=== PATIENT | male | born 1985 | race Caucasian/White ===

== ENCOUNTER 2016-06-26 07:51 | Inpatient (IN) | payer BC, OTHER ==
[2016-06-26] VITALS: BP 135/92
[~2016-06-26] VITALS: Ht 175.3 cm; Wt 117.9 kg
[2016-06-26 13:04] LABS: *AMPHETAMINE, URINE POSITIVE (NEGATIVE); *BARBITURATE, URINE NEGATIVE (NEGATIVE); *CANNABINOID, URINE POSITIVE (NEGATIVE); *COCCAINE, URINE NEGATIVE (NEGATIVE); *OPIATE, URINE POSITIVE (NEGATIVE); *PHENCYCLIDINE SCREEN,URINE NEGATIVE (NEGATIVE)
--- NOTE | 2016-06-26 13:05 | NUR ---
ADMISSION Pt 31 y/o male from home admitted for heroin/ methamphetamine/ marijuana/ etoh dependence. Pt appears disheveled. Pt alert and oriented to name, place, and time. Perrla. Skin warm and dry to touch. Respirations even and unlabored. Bilateral arms with abcesses noted. Bilateral feet with open wounds noted. VS wnl. YD=638/80 P=101 R=18 T=98.1 PAIN=0/10. Allergy = bactrim. Initial cows=4 ciwa=1. Pt stated he has no PCP. Pt denies any sz history. Pt denies any medical history, only depression and anxiety. Pt was seen by Dr. Sanders and started on a 4 day subutex taper starting 06/27/16. Pt oriented to unit and room. Bed on lowest position with side rails x2 up for safety. Call light within reach. No distress noted at this time. substance hx: - heroin IV 1gm daily x3 months, last used 06/26/16 0.5gm - methamphetamine IV <1gm daily x1 week, last used 06/26/16 <1gm - marijuana smoke 1 g total 3-4times a per week , last used on 06/23/16 0.5gm - etoh beer 3-4 beers daily x3 times per week, last drink 06/24/16 2 beers tx hx: 310 ( outpatient) 09/2015-11/2015 pt states he went to multiple outpatient treatments , but does not remember all of them.
[2016-06-26] MEDS ORDERED: HYDROXYZINE PAMOATE 25 MG CAPSULE PO PRN (13:30)
[2016-06-26] MEDS ORDERED: METHOCARBAMOL 750 MG TABLET PO PRN (13:30)
[2016-06-26] MEDS ORDERED: DICYCLOMINE HCL 20 MG TABLET PO PRN (13:30)
[2016-06-26] MEDS ORDERED: MAGNESIUM HYDROXIDE 30 ML LIQUID UDC PO PRN (13:30)
[2016-06-26] MEDS ORDERED: MIRALAX 17 GM POWD.PACK PO PRN (13:30)
[2016-06-26] MEDS ORDERED: ACETAMINOPHEN 325 MG TABLET PO PRN (13:30)
[2016-06-26] MEDS ORDERED: LOPERAMIDE HCL 2 MG CAPSULE PO PRN ×2 (13:30)
[2016-06-26] MEDS ORDERED: diphenhydrAMINE 50 MG CAPSULE PO PRN (13:30)
[2016-06-26] MEDS ORDERED: MAG HYDROX/AL HYDROX/SIMETH 30 ML LIQUID UDC PO PRN (13:30)
[2016-06-26] MEDS ORDERED: BUPRENORPHINE HCL 2 MG TAB.SUBL SL PRN (13:30)
[2016-06-26] MEDS ORDERED: ONDANSETRON ODT 4 MG TAB.RAPDIS SL PRN (13:30)
[2016-06-26] MEDS ORDERED: CLONIDINE HCL 0.1 MG TABLET PO PRN (13:30)
[2016-06-26] MEDS ORDERED: IBUPROFEN 600 MG TABLET PO PRN (13:30)
[2016-06-26] MEDS ORDERED: DOXYCYCLINE HYCLATE 100 MG TABLET PO SCH (13:45)
[2016-06-26 16:00] VITALS: BP 118/56
--- NOTE | 2016-06-26 18:37 | NUR ---
END OF SHIFT Pt 31 y/o male admitted for heroin, methamph,etoh, and marijuana dependence. Pt alert and oriented to name, place, and time. Perrla. Skin warm and dry to touch. Respirations even and unlabored. Bilateral hand tremors noted. Pt was seen by Dr. Sanders and infectious disease doctor. Pt observed mostly in room throughtout the day. Pt is to begin 4 day subutex starting on 06/27/16. Pt medication compliant and tolerated well. No ASE noted. Bed on lowest position with side rails x2 up for safety. Call light within reach. No distress noted at this time.
[2016-06-26] MEDS: CLINDAMYCIN HCL 300 MG CAPSULE PO SCH (19:25)
--- NOTE | 2016-06-26 19:30 | NUR ---
START OF SHIFT NOTE : Pt 31 y/o male admitted for heroin, methamph,etoh, and marijuana dependence. Pt alert and oriented to name, place, and time. Perrla. Skin warm and dry to touch. Respirations even and unlabored. Bilateral hand tremors noted. Pt was seen by Dr. Sanders and infectious disease doctor. Pt. placed on Cleocin treatment. Pt observed mostly in room throughout the day. Pt is to begin 4 day Subutex starting on 06/27/16. Pt medication compliant and tolerated well. Safety measures in place : bed on lowest position with side rails x2 up for safety, call light within reach. Will continue to monitor closely and offer help.
[2016-06-26] MEDS ORDERED: LACTOBACILLUS RHAMNOSUS GG 1 EACH CAPSULE PO SCH (21:00)
[2016-06-26] MEDS: GABAPENTIN 300 MG CAPSULE PO SCH (21:28)
[2016-06-26] MEDS: ACIDOPHILUS/BULGARICUS CHEW TAB PO SCH (21:28)
[2016-06-26 22:47] VITALS: BP 131/84
[2016-06-26 23:49] LABS: ALANINE AMINOTRANSFERASE 37 U/L (16-63); ALBUMIN 3.2 g/dL (3.4-5.0); ALKALINE PHOSPHATASE 74 U/L (50-136); ASPARTATE AMINOTRANSFERASE 25 U/L (15-37); BILIRUBIN,TOTAL 0.5 mg/dL (0.2-1.0); CALCIUM 8.8 mg/dL (8.5-10.1); CARBON DIOXIDE 27 mmol/L (21-32); CHLORIDE 98 mmol/L (98-107); CREATININE 0.8 mg/dL (0.6-1.3); GFR 111 mL/min (>60); GLUCOSE 102 mg/dL (74-106); POTASSIUM 3.4 mmol/L (3.5-5.1); SODIUM SERUM 136 mmol/L (136-145); TOTAL PROTEIN, SERUM 7.8 g/dL (6.4-8.2); UREA NITROGEN, BLOOD 9 mg/dL (7-18)
[2016-06-26 23:55] LABS: BASOPHILS # (AUTO) 0.1 K/uL (0.0-0.2); BASOPHILS % (AUTO) 1.6 % (0.0-2.0); EOSINOPHILS # (AUTO) 0.4 K/uL (0.0-0.7); EOSINOPHILS % (AUTO) 5.7 % (0.0-7.0); HEMATOCRIT 42.1 % (40.0-50.0); HEMOGLOBIN 14.4 g/dL (14.0-18.0); LYMPHOCYTES # (AUTO) 2.2 K/uL (0.8-4.8); LYMPHOCYTES % (AUTO) 29.3 % (20.5-51.5); MEAN CORPUSCULAR HGB CONC 34 g/dL (32.0-37.0); MEAN CORPUSCULAR VOLUME 84.7 fL (82.0-92.0); MONOCYTES # (AUTO) 0.6 K/uL (0.1-1.30); MONOCYTES % (AUTO) 8.6 % (0.0-11.0); NEUTROPHILS # (AUTO) 4.1 K/uL (1.8-8.9); NEUTROPHILS % (AUTO) 54.8 % (38.5-71.5); PLATELET COUNT (AUTO) 351 K/uL (150-450); RED BLOOD CELL COUNT(AUTO) 4.98 MIL/uL (4.70-6.10); RED CELL DISTRIBUTION WIDTH 12.9 % (11.5-14.5); WHITE BLOOD COUNT (AUTO) 7.4 K/uL (4.0-11.2)
[2016-06-27] VITALS: BP 135/92
[2016-06-27] LABS: THYROID STIMULATING HORMONE 0.543 mIU/mL (0.358-3.740)
[2016-06-27] MEDS ORDERED: POTASSIUM CHLORIDE 20 MEQ TAB.PRT.SR PO ONE (00:15)
[2016-06-27] MEDS: CLINDAMYCIN HCL 300 MG CAPSULE PO SCH ×5 (00:17→23:25)
[2016-06-27] MEDS ORDERED: POTASSIUM CHLORIDE 20 MEQ TAB.PRT.SR ONE (00:20)
[2016-06-27 00:21] LABS: ETHANOL < 3 MG/DL (0-0)
[2016-06-27 00:40] LABS: HIV-1 p24 ANTIGEN NON REACTIVE (NONREACTIVE); HIV-1/2 ANTIBODY NON REACTIVE (NONREACTIVE)
[2016-06-27] MEDS: ACIDOPHILUS/BULGARICUS CHEW TAB PO SCH ×3 (06:27→21:33)
--- NOTE | 2016-06-27 07:00 | NUR ---
END OF SHIFT NOTE : Pt 31 y/o male admitted for heroin, methamph,etoh, and marijuana dependence. Pt alert and oriented to name, place, and time. Perrla. Skin warm and dry to touch. .Pt was seen by Dr. Sanders and infectious disease doctor. Pt. placed on Cleocin treatment. Pt observed mostly in room throughout the day. Pt is to begin 4 day Subutex on 06/27/16. Pt remains compliant with the treatment plan. Pt denies nausea, vomiting and diarrhea. No PRNs were given during my shift. V/S remain WNL. RR=16, even and unlabored, lungs clear upon auscultation, abdomen soft and non- distended. Pt denies nausea, vomiting and diarrhea. LAST CIWA= 1 ,COWS=2 at 0400 , INTAKE= 1035 ml, voided x 3, slept 6 hours. Safety measures in place : bed on lowest position with side rails x2 up for safety, call light within reach. Will continue to monitor closely and offer help.
--- NOTE | 2016-06-27 07:50 | NUR ---
START OF SHIFT NOTE Received report from night nurse, 31 year old male admitted for heroin, methamphetamine,ETOH, and marijuana dependence. Full code/regular diet. Pt reported PMH of depression, anxiety. Pt placed on 3 days Subutex taper starting today. Pt did not receive any PRN's per night nurse, Slept for 6 hours, Last CIWA-1, COWS-2. Upon assessment Pt is alert and oriented to name, place, and time. Skin warm and dry to touch. Respirations even and unlabored. Bilateral hand tremors noted. Educate the pt plan of the day and medication regimen with good verbal understanding. Safety measures in place, call light within reach. Will continue to monitor.
[2016-06-27 08:00] VITALS: BP 139/75
[2016-06-27] MEDS: BUPRENORPHINE HCL 2 MG TAB.SUBL SL SCH ×3 (08:54→21:33)
[2016-06-27] MEDS: MULTIVITAMINS,THERAPEUTIC TABLET PO SCH (08:54)
[2016-06-27] MEDS: DOCUSATE SODIUM 250 MG CAPSULE PO SCH (08:54)
[2016-06-27] MEDS: GABAPENTIN 300 MG CAPSULE PO SCH ×3 (08:54→21:33)
[2016-06-27] MEDS ORDERED: TUBERCULIN,PURIF.PROT.DERIV. 5 TU/0.1 ML TEST ID ONE (09:00)
[2016-06-27] MEDS ORDERED: 4 DAY TAPER BUPRENORPHINE -SERENITY PROTOCOL SL PRN (09:00)
[2016-06-27] MEDS: NEOMY/BACITRAC/POLYMI OINT 28.35 GM TUBE TOP SCH ×2 (09:03→17:01)
[2016-06-27 12:00] VITALS: BP 116/74
[2016-06-27 16:00] VITALS: BP 128/80
--- NOTE | 2016-06-27 19:19 | NUR ---
END OF SHIFT NOTE Gave report to night nurse, 31 year old male admitted for heroin, methamphetamine,ETOH, and marijuana dependence. Full code/regular diet. Pt reported PMH of depression, anxiety. Pt placed on 3 days Subutex taper started today at 0900 COWS-was 13. Pt did not receive any PRN's during shift, No PRN's given during shift. Skin intact warm and dry to touch. Vital signs stable. Pt's total [id number] with voided x3, with x1 BM. No s/s of distress noted. Safety measures in place, call light within reach. Pt endorsed to night nurse in stable condition.
[2016-06-27 20:00] VITALS: BP 140/77
--- NOTE | 2016-06-27 20:00 | NUR ---
Start of Shift Patient is a 31-year old, male, admitted for heroin, methamphetamine,ETOH, and marijuana dependence. Pt is Full code, on regular diet and is allergic to Sulfamethoxazole and Trimethoprim. Pt reported PMHx of depression and anxiety. Pt placed on 4-day Subutex taper, started 06/27/2016. Pt is AAOx3, no SOB nor significant anxiety at this time. Pt is ambulatory with steady gait. No hallucinations, SI nor HI reported. Skin is intact. With medications for abscess. Fall, universal, seizure and safety prec in place. Call light within reach. Kept pt warm, dry and comfortable. Last CIWA=3, COWS=3. Will continue to monitor.
[2016-06-28] VITALS: BP 134/81
[2016-06-28] MEDS: ACIDOPHILUS/BULGARICUS CHEW TAB PO SCH ×3 (06:37→21:37)
[2016-06-28] MEDS: CLINDAMYCIN HCL 300 MG CAPSULE PO SCH ×3 (06:37→17:02)
--- NOTE | 2016-06-28 07:32 | NUR ---
End of Shift Patient is a 31-year old, male, admitted for heroin, methamphetamine,ETOH, and marijuana dependence. Pt is Full code, on regular diet and is allergic to Sulfamethoxazole and Trimethoprim. Pt reported PMHx of depression and anxiety. Pt placed on 4-day Subutex taper, started 06/27/2016. Pt is AAOx3, no SOB nor significant anxiety at this time. Pt is ambulatory with steady gait. No hallucinations, SI nor HI reported. Skin is intact. With medications for abscess. Fall, universal, seizure and safety prec in place. Call light within reach. Kept pt warm, dry and comfortable. Last COWS=2, CIWA=3, slept for 6 hours. Endorsed to AM shift nurse for continuity of care.
[2016-06-28 08:00] VITALS: BP 132/67
--- NOTE | 2016-06-28 08:05 | NUR ---
START OF SHIFT NOTE Received report from night nurse, 31 year old male admitted for heroin, methamphetamine,ETOH, and marijuana dependence. Full code/regular diet. Pt reported PMH of depression, anxiety. Pt placed on 3 days Subutex taper starting today. Pt did not receive any PRN's per night nurse, Slept for 6 hours, Last CIWA-3, COWS-2. Upon assessment Pt is alert and oriented x4, Denies any pain at this time. Skin warm and dry to touch. Respirations even and unlabored. Educate the pt plan of the day and medication regimen with good verbal understanding. Safety measures in place, call light within reach. Will continue to monitor.
[2016-06-28] MEDS: MULTIVITAMINS,THERAPEUTIC TABLET PO SCH (08:23)
[2016-06-28] MEDS: GABAPENTIN 300 MG CAPSULE PO SCH ×3 (08:23→21:37)
[2016-06-28] MEDS: NEOMY/BACITRAC/POLYMI OINT 28.35 GM TUBE TOP SCH ×2 (08:24→16:53)
[2016-06-28] MEDS: DOCUSATE SODIUM 250 MG CAPSULE PO SCH (08:26)
[2016-06-28] MEDS ORDERED: BUPRENORPHINE HCL 2 MG TAB.SUBL SL SCH (09:00)
[2016-06-28 12:00] VITALS: BP 126/66
[2016-06-28] MEDS: BUPRENORPHINE HCL 2 MG TAB.SUBL SL SCH ×2 (14:17→21:38)
[2016-06-28 16:00] VITALS: BP 118/70
--- NOTE | 2016-06-28 18:56 | NUR ---
END OF SHIFT NOTE Gave report to night nurse, 31 year old male admitted for heroin, methamphetamine,ETOH, and marijuana dependence. Full code/regular diet. Pt reported PMH of depression, anxiety. Pt cont 3 days Subutex taper. No PRN's given during shift. Skin intact warm and dry to touch. Vital signs stable. Pt's total [id number] ml with voided x5, with x2 BM. No s/s of distress noted. Last COWS-3, CIWA-2. Safety measures in place, call light within reach. Pt endorsed to night nurse in stable condition.
--- NOTE | 2016-06-28 19:46 | NUR ---
START OF SHIFT NOTE Pt is a 31 y/o male admitted for Heroin, Methamphetamine, Marijuana, and ETOH dependence and use. Pt has an allergy to Bactrim, and Trimethoprim and reported a PMH of depression and anxiety. Per day shift nurse pt was placed on a 4 day Subutex taper ( day 2) and is tolerating medication well, with no s/e or a/r reported. Per day shift nurse pt also receives triple ATB and PO therapy for multiple abrasions. Pt didn't receive any PRNS during the day shift. Last COW: 3 CIWA:2 (1600). Pt is calm, cooperative, and compliant with plan of care. Pt denies any pain/discomfort. Pt was encouraged to notify staff of changes in condition or of any concerns . Pt verbalized an understanding. All safety measures in place; side rails up x 2, bed locked and in low position, and call light within reach. Will continue to monitor.
[2016-06-28 20:00] VITALS: BP 116/80
--- NOTE | 2016-06-29 | NUR ---
COW AND VITALS REFUSED Pt refused to be assessed and have vitals taken at this time. Pt was encouraged x 3 with risks and benefits explained but the pt still refused. All safety measures in place. Will continue to monitor. Addendum: 06/29/16 at 0308 by DANILO WEAVER LVN Amended: Links added.
--- NOTE | 2016-06-29 05:11 | NUR ---
ABDOUL AND EMY REFUSED Pt refused to be assessed and have vitals taken at this time. Pt was encouraged x 3 with risks and benefits explained but the pt still refused. All safety measures in place. Will continue to monitor. Addendum: 06/29/16 at 0512 by DANILO WEAVER LVN Amended: Links added.
[2016-06-29 06:06] LABS: HCV AB 0.3 s/co ratio (0.0-0.9); HEPATITIS B CORE AB, IgM Negative (Negative); HEPATITIS B SURFACE AG Negative (Negative)
[2016-06-29] MEDS: ACIDOPHILUS/BULGARICUS CHEW TAB PO SCH ×3 (06:48→21:13)
--- NOTE | 2016-06-29 07:05 | NUR ---
Start of Shift Notes: Received patient in his room. Alert and oriented x 4. Verbally responsive. Appears anxious and tremulous at this time. Able to make his needs known. Respirations even and unlabored. No SOB noted. Skin warm and dry to touch. Abdomen soft and non-distended. BS (+) in all 4 quadrants. No complains of N/V/D or constipation noted. Bladder non-distended. No complains of dysuria noted. Voids independently. Ambulatory ad oscar with steady gait. Patient is a 31 year old male admitted for opiate/meth/marijuana and ETOH dependence who was placed on a 4-day Subutex taper as ordered. No adverse reactions noted. Has past medical hx of depression and anxiety. Allergic to Bactrim. FULL CODE. Regular diet. On fall and seizure precautions. Educated patient on the current plan of care for the day and the medication regimen. Encouraged oral fluid intake and encouraged group participation to learn new skills to prevent relapse. Will continue to monitor closely.
--- NOTE | 2016-06-29 07:34 | NUR ---
END OF SHIFT NOTE Pt is a 31 y/o male admitted for Heroin, Methamphetamine, Marijuana, and ETOH dependence and use. Pt has an allergy to Bactrim, and Trimethoprim and reported a PMH of depression and anxiety. Pt continues on a 4 day Subutex taper ( day 3) and is tolerating medication well, with no s/e or a/r reported. Pt also receives triple ATB and PO therapy for multiple abrasions. Pt didn't receive any PRNS during the shift. Last COW: 3 CIWA:1 (1999). Pt slept for a total of 6 hours. All safety measures in place; side rails up x 2, bed locked and in low position, and call light within reach. Endorsed to the oncoming nurse.
[2016-06-29 08:00] VITALS: BP 131/64
[2016-06-29] MEDS: BUPRENORPHINE HCL 2 MG TAB.SUBL SL SCH ×3 (08:38→21:14)
[2016-06-29] MEDS: MULTIVITAMINS,THERAPEUTIC TABLET PO SCH (08:38)
[2016-06-29] MEDS: GABAPENTIN 300 MG CAPSULE PO SCH ×3 (08:38→21:13)
[2016-06-29] MEDS: NEOMY/BACITRAC/POLYMI OINT 28.35 GM TUBE TOP SCH ×2 (08:39→16:06)
[2016-06-29] MEDS: DOCUSATE SODIUM 250 MG CAPSULE PO SCH (09:00)
--- NOTE | 2016-06-29 09:23 | NUR ---
DSS 250 mg PO not administered: Patient refused above med at this time. Per patient, he does not need it at this time. Education provided regarding the risk and benefits but patient still refused. Will continue to monitor closely.
[2016-06-29 12:00] VITALS: BP 154/104
--- NOTE | 2016-06-29 13:06 | NUR ---
Clonidine 0.1mg PO given: Patient noted with BP 154/104. Denies any complains of headache, chest pain, dizziness, blurred vision or lightheadedness. Patient appears mildly anxious. Redirection provided. Medicated patient with Clonidine 0.1mg PO as ordered. Will monitor for effectiveness.
[2016-06-29 14:06] VITALS: BP 143/89
--- NOTE | 2016-06-29 14:06 | NUR ---
Re-assessment: Patient's BP 143/89. Less anxiety noted. PRN Clonidine was effective.
[2016-06-29 16:00] VITALS: BP 142/89
--- NOTE | 2016-06-29 16:06 | NUR ---
Triple ATB ointment not adminstered: Patient refused 1700 triple atb ointment. Per patient, he does not need it at this time. Educated patient on the risk and consequences but patient still refused. Will continue to monitor and encourage.
--- NOTE | 2016-06-29 18:44 | NUR ---
End of Shift Notes: Patient is a 31 year old male admitted for opiate/methamphetamine/marijuana and ETOH dependence who was placed on a 4-day Subutex taper as ordered. No adverse reactions noted. Patient is tolerating taper well. Has past medical hx of depression and anxiety. Allergic to bactrim. FULL CODE. Regular diet. On fall and seizure precautions. Prior to admission, patient was using 1 gram of Heroin/day, less than 1 gram of methamphetamine, 1 gram of marijuana and 3-4 beers. VS monitored closely q 4 hours. Noted patient with increased BP, medicated patient with Clonidine as ordered with help after 1 hour.. Withdrawal symptoms were closely monitored. Patient presented with chills, hot flashes, anxiety, nasals stuffiness, x 1 diarrhea. Initial COWS 6, CIWA 2. Last COWS 1 /CIWA 1. Per patient, Subutex has been helping with his withdrawal symptoms. Compliant with care and treatment. Participated in group and therapy sessions. Safety precautions in place. Call light kept in reach. All needs met and attended. Will continue to monitor closely.
--- NOTE | 2016-06-29 19:56 | NUR ---
START OF SHIFT NOTE Pt is a 31 y/o male admitted for Heroin, Methamphetamine, Marijuana, and ETOH dependence and use. Pt has an allergy to Bactrim, and Trimethoprim and reported a PMH of depression and anxiety. Per day shift nurse pt continues on a 4 day Subutex taper ( day 3) and is tolerating medication well, with no s/e or a/r reported. Per day shift nurse pt also continues triple ATB and PO therapy for multiple abrasions. Pt received Clonidine 0.1 mg PO PRN during the day shift. Last COW: 1 CIWA:1 (1600). Pt is calm, cooperative, and compliant with plan of care. Pt denies any pain/discomfort. Pt was encouraged to notify staff of changes in condition or of any concerns . Pt verbalized an understanding. All safety measures in place; side rails up x 2, bed locked and in low position, and call light within reach. Will continue to monitor.
[2016-06-29 20:00] VITALS: BP 144/95
--- NOTE | 2016-06-30 | NUR ---
COW AND VITALS REFUSED Pt refused to be assessed and have vitals taken at this time. Pt was encouraged x 3 with risks and benefits explained but the pt still declined. All safety measures in place. Will continue to monitor. Addendum: 06/30/16 at 0614 by DANILO WEAVER LVN Amended: Links added.
--- NOTE | 2016-06-30 04:00 | NUR ---
COW AND VITALS REFUSED Pt refused to be assessed and have vitals taken at this time. Pt was encouraged x 3 with risks and benefits explained but the pt still declined. All safety measures in place. Will continue to monitor. Addendum: 06/30/16 at 0618 by DANILO WEAVER LVN Amended: Links added.
[2016-06-30] MEDS: ACIDOPHILUS/BULGARICUS CHEW TAB PO SCH ×3 (06:54→21:33)
--- NOTE | 2016-06-30 07:30 | NUR ---
START OF SHIFT Pt is a 31yr old male, AA&Ox3. Pt was admitted on 06/26/16 for Opiate/ETOH Dependence and is on 4 day Subutex taper as ordered. Medication lin well. Pt is full code, regular diet and allergies to Bactrim. Pt reports of PMH of Depression and Anxiety. No PRN's were given during the night. Pt slept for 6 hrs. Last COWS score was 1, CIWA score was 0. Pt is currently in bed resting with respirations even and unlabored. No acute distress noted. Skin is warm and dry to touch. Pt remains on Triple ATB ointment for multiple dry scabs on left and right foot. No tremor seen or felt. Pt denies any n/v at this time. Encouraged increase fluid intake. Safety precautions observed. Call light is within reach. Will continue to monitor.
--- NOTE | 2016-06-30 07:35 | NUR ---
END OF SHIFT NOTE Pt is a 31 y/o male admitted for Heroin, Methamphetamine, Marijuana, and ETOH dependence and use. Pt has an allergy to Bactrim, and Trimethoprim and reported a PMH of depression and anxiety. Pt continues on a 4 day Subutex taper ( day 4) and is tolerating medication well, with no s/e or a/r reported. Pt also receives triple ATB and PO therapy for multiple abrasions. Pt didn't receive any PRNS during the shift. Last COW: 1 CIWA:0 (1999). Pt slept for a total of 6 hours. All safety measures in place; side rails up x 2, bed locked and in low position, and call light within reach. Endorsed to the oncoming nurse.
[2016-06-30 08:00] VITALS: BP 103/55
[2016-06-30] MEDS ORDERED: BUPRENORPHINE HCL 2 MG TAB.SUBL SL SCH (09:00)
[2016-06-30] MEDS: DOCUSATE SODIUM 250 MG CAPSULE PO SCH (09:16)
[2016-06-30] MEDS: MULTIVITAMINS,THERAPEUTIC TABLET PO SCH (09:16)
[2016-06-30] MEDS: GABAPENTIN 300 MG CAPSULE PO SCH ×3 (09:16→21:33)
[2016-06-30] MEDS: NEOMY/BACITRAC/POLYMI OINT 28.35 GM TUBE TOP SCH ×2 (09:16→17:15)
[2016-06-30 12:00] VITALS: BP 131/86
[2016-06-30] MEDS ORDERED: ACID1TAB4 PO (12:28)
[2016-06-30] MEDS ORDERED: HYDR-3895 PO (12:28)
[2016-06-30] MEDS ORDERED: NEOM28.3 TOP (12:28)
[2016-06-30] MEDS ORDERED: CLON0.1T14 PO (12:28)
[2016-06-30] MEDS ORDERED: Gabapentin PO (12:28)
[2016-06-30 14:55] LABS: *AMPHETAMINE, URINE NEGATIVE (NEGATIVE); *BARBITURATE, URINE NEGATIVE (NEGATIVE); *CANNABINOID, URINE POSITIVE (NEGATIVE); *COCCAINE, URINE NEGATIVE (NEGATIVE); *OPIATE, URINE NEGATIVE (NEGATIVE); *PHENCYCLIDINE SCREEN,URINE NEGATIVE (NEGATIVE)
[2016-06-30 16:00] VITALS: BP 131/86
--- NOTE | 2016-06-30 19:23 | NUR ---
END OF SHIFT Pt is a 31yr old male, AA&Ox3. Pt was admitted on 06/26/16 for Opiate/ETOH Dependence and is on 4 day Subutex taper as ordered. Medication lin well. Pt is full code, regular diet and allergies to Bactrim. Pt reports of PMH of Depression and Anxiety. Pt has been cooperative with plan of care and attended group sessions. Pt has been cooperative with medication regime. No PRN's were given during the day. Last COWS score was 2 and CIWA score 2 at 1600. No acute distress noted. Skin is warm and dry to touch. Pt remains on Triple ATB ointment for multiple dry scabs on left and right foot. No tremor seen or felt. Pt denies any n/v at this time. Encouraged increase fluid intake. [facility] Urine drug screen is complete. Safety precautions observed. Call light is within reach.
[2016-06-30 20:00] VITALS: BP 145/91
--- NOTE | 2016-06-30 20:00 | NUR ---
Start of Shift note: Patient is a 31 y/o male admitted on 06/26/16 for Opiate dependence. Patient with past medical history of Depression & Anxiety. No seizure history noted. Fall precautions noted. Patient is on a regular diet with allergies to Bactrim. Full Code status. Patient completed his Subutex taper and he is scheduled to be discharge tomorrow. Urine collected and resulted. Discharge paper done. Skin intact. Pateint is alert & oriented x4. No shortness of breath noted. Respisration even & unlabored. Abdomen soft & non-distended. Bowel sounds active in all four quadrants. No nausea/vomiting noted. Patient denies pain & discomfort, sweating, chills, & stomach cramps. No hallucinations noted. Patient denies SI/HI. Safety precautions are in place. Bed locked in lowest position. Both side rails up. Call light within pts reach. Will continue to monitor patient.
--- NOTE | 2016-07-01 | NUR ---
Start of Shift note: Patient is a 31 y/o male admitted on 06/26/16 for Opiate dependence. Patient with past medical history of Depression & Anxiety. No seizure history noted. Fall precautions noted. Patient is on a regular diet with allergies to Bactrim. Full Code status. Patient completed his Subutex taper and he is scheduled to be discharge tomorrow. Urine collected and resulted. Discharge paper done. Skin intact. Pateint is alert & oriented x4. No shortness of breath noted. Respisration even & unlabored. Abdomen soft & non-distended. Bowel sounds active in all four quadrants. No nausea/vomiting noted. Patient denies pain & discomfort, sweating, chills, & stomach cramps. No hallucinations noted. Patient denies SI/HI. Safety precautions are in place. Bed locked in lowest position. Both side rails up. Call light within pts reach. Will continue to monitor patient. Addendum: 07/01/16 at 0109 by HERI VASQUEZ RN ERROR.. WRONG TIME.
--- NOTE | 2016-07-01 | NUR ---
VITALS/COWS REFUSED Patient refused vitals at this time. Patient asleep in bed and appears comfortable. COWS deferred as ordered. No s/s of distress noted. No shortness of breath noted. Safety precautions are in place. Will continue to monitor.
[2016-07-01] MEDS: ACIDOPHILUS/BULGARICUS CHEW TAB PO SCH (06:48)
--- NOTE | 2016-07-01 07:09 | NUR ---
END OF SHIFT NOTE: Pt had an uneventful night. Pt is scheduled to be discharge today. Urine drug screen collected and resulted. Discharge papers ready. Last COWS 1 CIWA 1 noted. No PRN medication was given during my shift. Pt remained stable and vitals remains WNL. Pt slept for a total of 8 hours. Pt consumed 1000ml of fluids. Voided 2x with no bowel movement. All needs attended & met. Safety precautions are in place. Bed locked in lowest position. Both side rails up. Call light within pts reach. Will endorse pt to day shift nurse.
--- NOTE | 2016-07-01 07:10 | NUR ---
Start of Shift Notes: Received patient in his room. Alert and oriented x 4. Verbally responsive. Appears anxious and tremulous at this time. Able to make his needs known. Respirations even and unlabored. No SOB noted. Skin warm and dry to touch. Abdomen soft and non-distended. BS (+) in all 4 quadrants. No complains of N/V/D or constipation noted. Bladder non-distended. No complains of dysuria noted. Voids independently. Ambulatory ad oscar with steady gait. Patient is a 31 year old male admitted for opiate/meth/marijuana and ETOH dependence who was placed on a 4-day Subutex taper as ordered. No adverse reactions noted. Completed taper and will be discharging today. Has past medical hx of depression and anxiety. Allergic to Bactrim. FULL CODE. Regular diet. On fall and seizure precautions. Educated patient on the current plan of care for the day and the medication regimen as well as the discharge process. Patient verbalized understanding. Will continue to monitor closely.
[2016-07-01 08:00] VITALS: BP 109/63
--- NOTE | 2016-07-01 08:00 | NUR ---
Discharge Instructions: Patient was educated regarding his discharge instructions. Patient verbalized good understanding. Educated patient on MD'd dc orders, prescription and wound care.
[2016-07-01] MEDS: MULTIVITAMINS,THERAPEUTIC TABLET PO SCH (08:11)
[2016-07-01] MEDS: GABAPENTIN 300 MG CAPSULE PO SCH (08:11)
[2016-07-01] MEDS: NEOMY/BACITRAC/POLYMI OINT 28.35 GM TUBE TOP SCH (08:12)
[2016-07-01] MEDS: DOCUSATE SODIUM 250 MG CAPSULE PO SCH (08:12)
--- NOTE | 2016-07-01 08:13 | NUR ---
DSS 250 mg PO not administered: Patient refused above med at this time. Per patient, he does not need it at this time. Education provided regarding the risk and benefits but patient still refused. No complains of constipation noted.
[2016-07-01 12:00] VITALS: BP 121/80
--- NOTE | 2016-07-01 13:25 | NUR ---
Discharged: Patient left the unit at this time in stable condition. VS stable. No s/s of withdrawal noted. Patient's belongings, valuables and necessary paper works were given to the patient. Patient verbalized good understanding of all teachings. All needs met and attended. Escorted off the unit with male BHT and picked up by [employer] [facility] to be transported to [facility].
[2016-07-05 08:09] LABS: *AMPHETAMINE Positive (.); *CANNABINOID (THC) Positive (.); *CODEINE Positive (.); *HYDROMORPHONE Negative (Cutoff=300); *METHAMPHETAMINE Positive (.); *OPIATES Positive ng/mL (Cutoff=300)
== END 2016-07-01 13:25 | disposition other institution (70) | DRG 895 ==
LOC: SRC 12:08
PROVIDERS: ADMIT Internal Medicine; ATTEND Internal Medicine
PROC: HZ2ZZZZ Detoxification Services for Substance Abuse Treatment (ICD-10-PCS; principal; 2016-06-26)
PROC: HZ31ZZZ Individual Counseling for Substance Abuse Treatment, Behavioral (ICD-10-PCS; 2016-06-29)
DX: F11.23 Opioid dependence with withdrawal (principal); F15.10 Other stimulant abuse, uncomplicated; F17.210 Nicotine dependence, cigarettes, uncomplicated; L71.9 Rosacea, unspecified; F12.10 Cannabis abuse, uncomplicated; F10.10 Alcohol abuse, uncomplicated; Y90.9 Presence of alcohol in blood, level not specified; S91.302A Unspecified open wound, left foot, initial encounter; S91.301A Unspecified open wound, right foot, initial encounter; X58.XXXA Exposure to other specified factors, initial encounter; Y92.89 Other specified places as the place of occurrence of the external cause
CPT/HCPCS: 36415; 80307; 80324; 80349; 80361; 83735; 84443; 85025; 86580; 86592; 86705; 86803; 87340; 87806; G6040-TC